=== PATIENT | female | born 1995 | race Hispanic/Latino ===

== ENCOUNTER 2021-04-22 20:59 | Day surgery (SDC) | payer OTHER ==
[2021-04-22] MEDS ORDERED: hydrALAZINE 20 MG/ML VIAL SLOW IVP PRN (22:19)
[2021-04-22 23:06] VITALS: BMI 33.3
[2021-04-22 23:10] LABS: Bilirubin Neg (Negative); Blood, Urine 250 (Negative); Clarity Clear (Clear); Glucose, Urine (Dipstick) Normal (Negative); Ketone, Urine Negative (Negative); Leukocyte Negative (Negative); Nitrite Negative (Negative); Protein, Urine (Dipstick) Negative (Neg-Trace); Specific Gravity, Urine 1.005 (1.002-1.036); Urobilinogen Normal mg/dL (Less than 2)
[2021-04-22] MEDS ORDERED: Lactated Ringer's 1,000 ML IV SCH (23:15)
[2021-04-22 23:49] LABS: FFN Internal QC Analyzer PASS (PASS); FFN Internal QC Cassette PASS (PASS); Fetal Fibronectin Negative (Negative)
[2021-04-22 23:52] LABS: Bacteria/HPF None Seen HPF (None Seen); RBC/HPF 21-50 HPF (0-3)
[2021-04-23] MEDS ORDERED: metroNIDAZOLE 500 MG TAB PO SCH ×2 (01:45→21:00)
[2021-04-23 19:11] LABS: Chlamydia by PCR Not Detected (NotDetected); GC by PCR Not Detected (NotDetected)
== END 2021-04-23 05:25 | disposition home or self-care (01) ==
LOC: CSHLD/OP 20:59
PROVIDERS: ATTEND Student in an Organized Health Care Education/Training Program
DX: O47.03 False labor before 37 completed weeks of gestation, third trimester (principal); O23.593 Infection of other part of genital tract in pregnancy, third trimester; B96.89 Other specified bacterial agents as the cause of diseases classified elsewhere; O09.213 Supervision of pregnancy with history of pre-term labor, third trimester; O09.43 Supervision of pregnancy with grand multiparity, third trimester; O21.2 Late vomiting of pregnancy; Z86.16 Personal history of COVID-19; Z3A.30 30 weeks gestation of pregnancy
CPT/HCPCS: 81001; 82731; 87480; 87491; 87510; 87591; 87660; 99285

== ENCOUNTER 2021-06-07 09:04 | Inpatient (IN) | payer OTHER ==
[~2021-06-07 09:04] MED LIST: Bupivacaine PF 0.5% 30 ML VIAL ONE; Bupivacaine/Epinephrine 0.25% 30 ML VIAL ONE
[2021-06-07] MEDS ORDERED: hydrALAZINE 20 MG/ML VIAL ONE (09:52)
[2021-06-07] MEDS ORDERED: Magnesium Sulfate 20 gm/500 ml 20 GM/500 ML BAG ONE ×2 (09:52→15:58)
[2021-06-07] MEDS ORDERED: Promethazine HCl 25 MG/ML VIAL IM PRN ×2 (09:53→14:34)
[2021-06-07] MEDS ORDERED: Calcium Gluc 4.6 MEQ/10 ML (100 MG/ML) SLOW IVP PRN (09:53)
[2021-06-07] MEDS ORDERED: Ondansetron PF 4 MG/2 ML Vial IVP PRN ×2 (09:53→14:34)
[2021-06-07] MEDS ORDERED: Magnesium Sulfate 20 GM/WATER 500 ML BAG IVPB SCH ×2 (10:00→10:15)
[2021-06-07] MEDS ORDERED: Magnesium Sulfate 20 gm/500 ml 20 GM/500 ML BAG IVPB SCH (10:00)
[2021-06-07] MEDS ORDERED: hydrALAZINE 20 MG/ML VIAL SLOW IVP SCH (10:00)
[2021-06-07 10:27] LABS: Mean Corpuscular HGB CONC 34.5 g/dL (32.0-36.0); Mean Corpuscular Hemoglobin 30.6 pg (27.0-33.0); Mean Corpuscular Volume 88.8 fl (81.6-98.3); Mean Platelet Volume 12.5 fl (7.4-10.4); Platelet Count 210 10x3/uL (150-450); RBC Distribution Width 13.3 % (11.5-14.5); Red Blood Cell (RBC) Count 3.92 10x6/uL (3.90-5.03); White Blood Cell (WBC) Count 8.3 10x3/uL (3.5-10.5)
[2021-06-07 10:53] LABS: ALT (SGPT) 9 U/L (8-55); AST (SGOT) 13 U/L (5-34); Albumin 3.1 g/dL (3.5-5.0); Alkaline Phosphatase 115 U/L (40-110); Anion Gap 13 mmol/L (10-20); BUN (Urea Nitrogen) 5 mg/dL (7.0-18.7); Bilirubin, Total 0.4 mg/dL (0.2-1.2); Calc. Creatinine Clearance 0 mL/min (70-130); Calcium 8.5 mg/dL (7.8-10.44); Carbon Dioxide 21 mmol/L (22-29); Chloride 107 mmol/L (98-107); Globulin 2.7 g/dL (2.4-3.5); Glucose 77 mg/dL (70-105); Potassium 3.6 mmol/L (3.5-5.1); Protein, Total 5.8 g/dL (6.0-8.3); Sodium 137 mmol/L (136-145); Uric Acid 5.6 mg/dL (2.6-6.0)
[2021-06-07] MEDS ORDERED: Lidocaine 1% (PF) 30 ML VIAL SC PRN (10:54)
[2021-06-07] MEDS ORDERED: Ibuprofen 800 MG TAB PO PRN (10:54)
[2021-06-07] MEDS ORDERED: Misoprostol 200 MCG TAB PR PRN (10:54)
[2021-06-07 10:55] VITALS: BMI 36.1
[2021-06-07] MEDS ORDERED: NS w/ Oxytocin 30 units 500 ML IV SCH ×2 (11:00)
[2021-06-07] MEDS ORDERED: NS w/ Oxytocin 30 units 500 ML ONE (11:01)
[2021-06-07 11:59] LABS: Creatinine, Urine Less than 20.00 mg/dL (47-110); Protein, Urine Random Quant Less than 10 mg/dL (1-14)
[2021-06-07] MEDS ORDERED: Fentanyl 2 mcg/Bup 0.1% Cadd 100 ML ONE ×2 (12:15→22:37)
[2021-06-07] MEDS: hydrALAZINE 20 MG/ML VIAL SLOW IVP PRN (12:46)
[2021-06-07] MEDS ORDERED: diphenhydrAMINE 50 MG/ML VIAL IVP PRN (14:34)
[2021-06-07] MEDS ORDERED: Moisturizing Cream (Eucerin) 113 GM JAR TOP PRN (14:34)
[2021-06-07] MEDS ORDERED: ePHEDrine Sulfate 50 MG/10 ML VIAL SLOW IVP PRN (14:34)
[2021-06-07] MEDS ORDERED: Naloxone HCl 0.4 mg/ml Vial IVP PRN ×2 (14:34)
[2021-06-07] MEDS ORDERED: Acetaminophen 325 MG TAB PO PRN (14:34)
[2021-06-07] MEDS ORDERED: Lactated Ringer's 500 ML IV PRN (14:34)
[2021-06-07] MEDS ORDERED: Fentanyl 2 mcg/Bupivacaine 0.1% Cassette 100 ML EPIDURAL SCH (14:45)
[2021-06-07] MEDS ORDERED: Communication Order-Pharmacy FS SCH (14:45)
[2021-06-07] MEDS: Acetaminophen 500 MG TAB PO PRN (15:57)
[2021-06-07] MEDS ORDERED: Metoclopramide HCl 10 MG TAB PO SCH (16:10)
[2021-06-07] MEDS ORDERED: Acetaminophen 500 MG TAB PO SCH (16:10)
[2021-06-08] MEDS: hydrALAZINE 20 MG/ML VIAL SLOW IVP PRN (05:05)
[2021-06-08] MEDS: Acetaminophen 500 MG TAB PO PRN (05:11)
[2021-06-08] MEDS: Lactated Ringer's 1,000 ML IV SCH ×3 (07:42→12:07)
[2021-06-08] MEDS ORDERED: Furosemide 20 MG/2 ML VIAL SLOW IVP SCH (08:00)
[2021-06-08 09:53] LABS: Hemoglobin 13.2 g/dL (12.0-15.5)
[2021-06-08] MEDS: Ibuprofen 800 MG TAB PO PRN (19:03)
[2021-06-09] MEDS: Ibuprofen 800 MG TAB PO PRN ×2 (01:29→13:45)
[2021-06-09] MEDS ORDERED: Furosemide 20 MG/2 ML VIAL SLOW IVP SCH (02:00)
[2021-06-09] MEDS ORDERED: Preparation H Ointment 28 GM TUBE PR PRN (03:36)
[2021-06-09] MEDS ORDERED: Milk Of Magnesia 30 ML UDCUP PO PRN (03:36)
[2021-06-09] MEDS ORDERED: Misoprostol 200 MCG TAB VAG PRN (03:36)
[2021-06-09] MEDS ORDERED: Bisacodyl 10 MG SUPP PR PRN (03:36)
[2021-06-09] MEDS ORDERED: diphenhydrAMINE 25 MG CAP PO PRN (03:36)
[2021-06-09] MEDS ORDERED: NS w/ Oxytocin 30 units 500 ML IV SCH (03:36)
[2021-06-09] MEDS ORDERED: Benzocaine-Menthol 82.5 ML CAN TOP PRN (03:36)
[2021-06-09] MEDS ORDERED: Lanolin Ointment 7 GM TUBE TOP PRN (03:36)
[2021-06-09] MEDS ORDERED: Docusate 100 MG CAP PO SCH (03:45)
[2021-06-09] MEDS ORDERED: Ferrous Sulfate 325 MG TAB PO SCH (03:45)
[2021-06-09] MEDS ORDERED: Prenatal Vitamin 1 TAB PO SCH (03:45)
[2021-06-09] MEDS: Lactated Ringer's 1,000 ML IV SCH (07:29)
[2021-06-09] MEDS: Prenatal Vitamin 1 TAB PO SCH (08:37)
[2021-06-09] MEDS: Docusate 100 MG CAP PO SCH ×2 (08:37→22:29)
[2021-06-09] MEDS: Ferrous Sulfate 325 MG TAB PO SCH (14:25)
[2021-06-10] MEDS: Docusate 100 MG CAP PO SCH (09:16)
[2021-06-10] MEDS: Prenatal Vitamin 1 TAB PO SCH (09:16)
[2021-06-10] MEDS: Ferrous Sulfate 325 MG TAB PO SCH (09:16)
[2021-06-10 11:29] VITALS: TEMP 98.4
[2021-06-10] MEDS ORDERED: hydrALAZINE 20 MG/ML VIAL ONE (11:59)
[2021-06-10 13:45] VITALS: BP 142/78
== END 2021-06-10 13:55 | disposition home or self-care (01) | DRG 807 ==
LOC: CSHLD/OP 09:04 → CSHLD 20:12 → CSHPP 06-09 03:23
PROVIDERS: ADMIT Student in an Organized Health Care Education/Training Program; ATTEND Student in an Organized Health Care Education/Training Program
PROC: 10E0XZZ Delivery of Products of Conception, External Approach (ICD-10-PCS; principal; 2021-06-08)
DX: O14.14 Severe pre-eclampsia complicating childbirth (principal); Z37.0 Single live birth; Z3A.36 36 weeks gestation of pregnancy; E66.9 Obesity, unspecified; O99.214 Obesity complicating childbirth; Z90.89 Acquired absence of other organs; Z79.899 Other long term (current) drug therapy; Z86.16 Personal history of COVID-19; H55.00 Unspecified nystagmus; O99.892 Other specified diseases and conditions complicating childbirth; O69.81X0 Labor and delivery complicated by cord around neck, without compression, not applicable or unspecified; O42.02 Full-term premature rupture of membranes, onset of labor within 24 hours of rupture
CPT/HCPCS: 36415; 36416; 51702; 80053; 82570; 84156; 84550; 85014; 85018; 85027; 86850; 86900; 86901; 88307; 99285; J0360; J1940; J2590; J3475; J7120; S0020

== ENCOUNTER 2023-04-09 18:37 | Inpatient (IN) | payer OTHER ==
[2023-04-09 19:12] VITALS: BMI 35.1
[2023-04-09] MEDS ORDERED: Ibuprofen 800 MG TAB PO PRN (19:41)
[2023-04-09] MEDS ORDERED: Diphenoxylate HCl/Atropine Tablet PO PRN (19:41)
[2023-04-09] MEDS ORDERED: hydrALAZINE 20 MG/ML VIAL SLOW IVP PRN (19:41)
[2023-04-09] MEDS ORDERED: Ondansetron PF 4 MG/2 ML Vial IVP PRN ×2 (19:41→22:50)
[2023-04-09] MEDS ORDERED: Lidocaine 1% (PF) 30 ML VIAL SC PRN (19:41)
[2023-04-09] MEDS ORDERED: Acetaminophen 500 MG TAB PO PRN (19:41)
[2023-04-09] MEDS ORDERED: Carboprost 250 MCG/ML AMP IM PRN (19:41)
[2023-04-09] MEDS ORDERED: Tranexamic Acid 1,000 MG/10 ML VIAL IVP PRN (19:41)
[2023-04-09] MEDS ORDERED: Promethazine HCl 25 MG/ML VIAL IM PRN ×2 (19:41→22:50)
[2023-04-09] MEDS ORDERED: Misoprostol 200 MCG TAB PR PRN (19:41)
[2023-04-09] MEDS ORDERED: Oxytocin 30 units/NS 500 ML 500 ML IV SCH ×2 (20:00→20:30)
[2023-04-09] MEDS: Misoprostol 100 MCG TAB VAG SCH (20:15)
[2023-04-09 20:44] LABS: Hematocrit 33.9 % (34.9-44.5); Hemoglobin 11.6 g/dL (12.0-15.5); Mean Corpuscular HGB CONC 34.2 g/dL (32.0-36.0); Mean Corpuscular Hemoglobin 29.5 pg (27.0-33.0); Mean Corpuscular Volume 86.3 fl (81.6-98.3); Mean Platelet Volume 12.6 fl (7.4-10.4); Platelet Count 259 10x3/uL (150-450); RBC Distribution Width 12.7 % (11.5-14.5); Red Blood Cell (RBC) Count 3.93 10x6/uL (3.90-5.03); White Blood Cell (WBC) Count 7.9 10x3/uL (3.5-10.5)
[2023-04-09 20:54] LABS: ALT (SGPT) 9 U/L (8-55); AST (SGOT) 12 U/L (5-34); Albumin 3.3 g/dL (3.5-5.0); Alkaline Phosphatase 158 U/L (40-110); Anion Gap 12 mmol/L (10-20); BUN (Urea Nitrogen) 9 mg/dL (7.0-18.7); Bilirubin, Total 0.3 mg/dL (0.2-1.2); Calc. Creatinine Clearance 171 mL/min (70-130); Calcium 8.6 mg/dL (7.8-10.44); Carbon Dioxide 21 mmol/L (22-29); Chloride 108 mmol/L (98-107); Creatinine, Urine 151.4 mg/dL (47-110); Estimated GFR 125; Globulin 2.8 g/dL (2.4-3.5); Glucose 106 mg/dL (70-105); Potassium 3.7 mmol/L (3.5-5.1); Protein, Total 6.1 g/dL (6.0-8.3); Sodium 137 mmol/L (136-145)
[2023-04-09] MEDS ORDERED: fentaNYL/Ropivacaine Epidural 100 ML ONE (22:19)
[2023-04-09] MEDS: Lactated Ringer's 1,000 ML IV SCH (22:38)
[2023-04-09 22:39] LABS: HBSAg Index 0.15 S/CO (0-0.99); Hep B Surf Ag - L&D Non-Reactive S/CO (NonReactive); Syphilis Antibody Nonreactive (Nonreactive); Syphilis Antibody Index 0.08 S/CO (<1.00 Non-Reactive)
[2023-04-09] MEDS ORDERED: ePHEDrine Sulfate 50 MG/10 ML VIAL SLOW IVP PRN (22:50)
[2023-04-09] MEDS ORDERED: Lactated Ringer's 500 ML IV PRN (22:50)
[2023-04-09] MEDS ORDERED: Moisturizing Cream (Eucerin) 113 GM JAR TOP PRN (22:50)
[2023-04-09] MEDS ORDERED: Acetaminophen 325 MG TAB PO PRN (22:50)
[2023-04-09] MEDS ORDERED: Naloxone HCl 0.4 mg/ml Vial IVP PRN ×2 (22:50)
[2023-04-09] MEDS ORDERED: diphenhydrAMINE 50 MG/ML VIAL IVP PRN (22:50)
[2023-04-09] MEDS ORDERED: Communication Order-Pharmacy FS SCH (23:00)
[2023-04-09] MEDS ORDERED: fentaNYL 2 mcg/Ropivacaine 0.2% Epidural 100 ML CADD EPIDURAL SCH (23:00)
[2023-04-10] MEDS: Misoprostol 100 MCG TAB VAG SCH ×7 (01:24→19:11)
[2023-04-10] MEDS: Lactated Ringer's 1,000 ML IV SCH ×4 (01:24→19:11)
[2023-04-10] MEDS ORDERED: fentaNYL 50 mcg/mL 1 mL Vial ONE (06:32)
[2023-04-10] MEDS ORDERED: Boostrix 0.5 ML (Tdap) VIAL (>/=7 yrs of age) IM ONE (06:56)
[2023-04-10] MEDS ORDERED: Bisacodyl 10 MG SUPP PR PRN (06:56)
[2023-04-10] MEDS ORDERED: Milk Of Magnesia 30 ML UDCUP PO PRN (06:56)
[2023-04-10] MEDS ORDERED: Preparation H Ointment 28 GM TUBE PR PRN (06:56)
[2023-04-10] MEDS ORDERED: Benzocaine-Menthol 82.5 ML CAN TOP PRN (06:56)
[2023-04-10] MEDS ORDERED: Bupivacaine 0.25% HCL 30 ML VIAL ONE (08:00)
[2023-04-10] MEDS: Ferrous Sulfate 325 MG TAB PO SCH ×2 (09:36→16:59)
[2023-04-10] MEDS: Docusate 100 MG CAP PO SCH ×2 (09:36→22:10)
[2023-04-10] MEDS: Ibuprofen 800 MG TAB PO SCH ×2 (14:31→22:11)
[2023-04-11] MEDS: Ibuprofen 800 MG TAB PO SCH (05:16)
[2023-04-11] MEDS: Ferrous Sulfate 325 MG TAB PO SCH (07:16)
[2023-04-11 07:52] VITALS: BP 119/81; TEMP 98
[2023-04-11] MEDS: Docusate 100 MG CAP PO SCH (07:56)
== END 2023-04-11 12:55 | disposition home or self-care (01) | DRG 807 ==
LOC: CSHLD 18:37 → CSHPP 04-10 09:15
PROVIDERS: ADMIT Family Medicine; ATTEND Family Medicine
PROC: 3E0P7VZ Introduction of Hormone into Female Reproductive, Via Natural or Artificial Opening (ICD-10-PCS; 2023-04-09)
PROC: 10E0XZZ Delivery of Products of Conception, External Approach (ICD-10-PCS; principal; 2023-04-10)
PROC: 10907ZC Drainage of Amniotic Fluid, Therapeutic from Products of Conception, Via Natural or Artificial Opening (ICD-10-PCS; 2023-04-10)
PROC: 10H07YZ Insertion of Other Device into Products of Conception, Via Natural or Artificial Opening (ICD-10-PCS; 2023-04-10)
DX: O10.92 Unspecified pre-existing hypertension complicating childbirth (principal); Z37.0 Single live birth; O99.214 Obesity complicating childbirth; Z3A.38 38 weeks gestation of pregnancy; E66.9 Obesity, unspecified
CPT/HCPCS: 36415; 51702; 76815; 80053; 82570; 84156; 85027; 86780; 86850; 86900; 86901; 87340; J0665; J2590; J7120

== ENCOUNTER 2023-04-13 19:18 | Emergency (ER) | payer OTHER ==
[2023-04-13 20:09] LABS: Bilirubin Neg (Negative); Blood, Urine 250 (Negative); Clarity Slightly Cloudy (Clear); Glucose, Urine (Dipstick) Normal (Negative); Ketone, Urine Negative (Negative); Leukocyte 100 (Negative); Nitrite Negative (Negative); Protein, Urine (Dipstick) 30 mg/dl (Neg-Trace)
[2023-04-13 20:29] LABS: Bacteria/HPF 3+ HPF (None Seen); CAUTI Indications for Culture Dysuria,urgency,freq; RBC/HPF Greater than 50 HPF (0-3); Urine Culture Reflex No No
[2023-04-13 20:57] LABS: Anion Gap 13 mmol/L (10-20); BUN (Urea Nitrogen) 13 mg/dL (7.0-18.7); Calc. Creatinine Clearance 0 mL/min (70-130); Carbon Dioxide 23 mmol/L (22-29); Chloride 108 mmol/L (98-107); Potassium 3.7 mmol/L (3.5-5.1); Sodium 140 mmol/L (136-145)
[2023-04-13 20:58] LABS: Estimated GFR 127; Glucose 91 mg/dL (70-105)
== END 2023-04-13 22:22 | disposition home or self-care (01) ==
LOC: CSHERS 19:18
DX: O14.95 Unspecified pre-eclampsia, complicating the puerperium (principal); Z75.3 Unavailability and inaccessibility of health-care facilities
CPT/HCPCS: 80048; 81001; 93005